=== PATIENT | female | born 1955 | race Caucasian/White ===

== ENCOUNTER 2021-02-19 06:21 | Inpatient (IN) ==
[2021-02-19] MEDS ORDERED: *HR* FentaNYL (PF) 100 MCG/2 ML VIAL ONE ×2 (07:04→08:13)
[2021-02-19] MEDS ORDERED: *HR* Midazolam HCl 2 MG/2 ML VIAL ONE (07:04)
[2021-02-19] MEDS ORDERED: Lidocaine -MPF 2% 5 ML VIAL ONE (07:04)
[2021-02-19] MEDS ORDERED: *HR* Rocuronium Bromide 50 MG/5 ML VIAL ONE (07:04)
[2021-02-19] MEDS ORDERED: Ondansetron 4 MG/2 ML VIAL ONE (07:04)
[2021-02-19] MEDS ORDERED: Lidocaine -MPF 4% 5 ML AMPUL ONE (07:04)
[2021-02-19] MEDS ORDERED: *HR* Succinylcholine 200 MG/10 ML VIAL IVP ONE (07:04)
[2021-02-19] MEDS ORDERED: *HR* Propofol 200 MG/20 ML VIAL IVP ONE (07:04)
[2021-02-19] MEDS ORDERED: CeFAZolin Syr 2,000MG/20 ML 2,000 MG/20 ML SYRINGE IVPB ONE (07:17)
[2021-02-19] MEDS ORDERED: *HR* HYDROmorphone 2 MG TABLET PO PRN (07:25)
[2021-02-19] MEDS ORDERED: Pregabalin 75 MG CAPSULE PO ONE (07:25)
[2021-02-19] MEDS ORDERED: *HR* Labetalol 20 MG/4 ML SYRINGE IVP PRN (07:25)
[2021-02-19] MEDS ORDERED: Acetaminophen IV 1,000 MG/100 ML BAG IVPB ONE (07:25)
[2021-02-19] MEDS ORDERED: Famotidine 20 MG/2 ML VIAL IVP ONE (07:25)
[2021-02-19] MEDS ORDERED: *HR* OxyCODONE Immed Rel 5 MG TABLET PO PRN (07:25)
[2021-02-19] MEDS ORDERED: Ringers Solution, Lactated 1,000 ML IVC SCH (07:30)
[2021-02-19] MEDS ORDERED: EPHEDrine 50 MG/ML VIAL ONE (08:10)
[2021-02-19] MEDS ORDERED: Sugammadex Sodium 200 MG/2 ML VIAL IV ONE (08:27)
[2021-02-19] MEDS ORDERED: *HR* Dextrose 50 % in Water (Syg) 50 ML SYRINGE IVP PRN ×2 (09:45→18:08)
[2021-02-19] MEDS ORDERED: Dextrose Gel 15 GM/37.5 ML TUBE PO PRN ×4 (09:45→18:08)
[2021-02-19] MEDS ORDERED: D5% in Water 1,000 ML IVC PRN ×2 (09:45→18:08)
[2021-02-19] MEDS: *HR* HYDROmorphone PF 0.5 MG/0.5 ML SYRINGE IVP PRN ×2 (10:04→10:15)
[2021-02-19] MEDS ORDERED: Insulin LISPRO 300 UNITS/3 ML VIAL SUBQ SCH ×3 (11:30→21:00)
[2021-02-19] MEDS ORDERED: Ondansetron 4 MG/2 ML VIAL IVP PRN (12:06)
[2021-02-19] MEDS ORDERED: *HR* HYDROcodone/Acet 5/325 mg TABLET PO PRN (12:06)
[2021-02-19] MEDS ORDERED: Naloxone 0.4 MG/ML INJ IVP PRN (12:06)
[2021-02-19] MEDS ORDERED: Silver Sulfadiazine 50 GM TUBE TP ONE (12:06)
[2021-02-19] MEDS: Ketorolac 30 MG/ML VIAL IVP SCH ×3 (13:07→23:27)
[2021-02-19] MEDS: *HR* Heparin 5,000 UNIT/ML VIAL SQ SCH ×2 (13:07→20:54)
[2021-02-19] MEDS: 0.9 % Sodium Chloride 1,000 ML IVC SCH (13:07)
[2021-02-19] MEDS: Ipratropium/Albuterol Neb 3 ML IH SCH ×4 (13:44→23:35)
[2021-02-19] MEDS: Gabapentin 300 MG CAPSULE PO SCH ×2 (14:31→20:34)
[2021-02-19] MEDS: *HR* Metformin 500 MG TABLET PO SCH (16:08)
[2021-02-19] MEDS ORDERED: Insulin LISPRO 300 UNITS/3 ML VIAL SUBQ ONE (18:45)
[2021-02-19] MEDS: Sennosides/Docusate Sodium TABLET PO SCH (20:34)
[2021-02-19] MEDS: Famotidine 20 MG TABLET PO SCH (20:34)
[2021-02-20] MEDS: 0.9 % Sodium Chloride 1,000 ML IVC SCH (02:57)
[2021-02-20] MEDS: Ipratropium/Albuterol Neb 3 ML IH SCH ×2 (04:26→07:32)
[2021-02-20 06:03] LABS: Hematocrit 31.1 % (35.3-44.9); Hemoglobin 10.4 g/dL (11.5-15.4); Mean Corpuscular HGB Conc 33.4 g/dL (31.6-35.5); Mean Corpuscular Hemoglobin 30.5 pg (28.0-33.3); Mean Corpuscular Volume 91.2 fL (83.0-100.0); Mean Platelet Volume 10.3 fL (9.4-12.4); Platelet Count 243 K/mcL (140-400); Red Blood Count 3.41 M/mcL (3.82-4.97); White Blood Count 9.3 K/mcL (4.3-11.1)
[2021-02-20] MEDS: Ketorolac 30 MG/ML VIAL IVP SCH (06:06)
[2021-02-20] MEDS: *HR* Heparin 5,000 UNIT/ML VIAL SQ SCH (06:07)
[2021-02-20 06:12] LABS: BUN/Creatinine Ratio 24 (6-26); Blood Urea Nitrogen 16 mg/dL (8-23); Calcium 8.7 mg/dL (8.6-10.3); Carbon Dioxide 24 mEq/L (23-29); Chloride 108 mEq/L (98-107); Glucose 241 mg/dL (70-105); Osmolality,Calculated 295 (280-300); Potassium 4.1 mEq/L (3.5-5.1); Sodium 138 mEq/L (136-145); eGFR For African Americans > 60 (> 60); eGFR For Non-African Americans > 60 (> 60)
[2021-02-20] MEDS ORDERED: Insulin LISPRO 300 UNITS/3 ML VIAL SUBQ SCH (07:30)
[2021-02-20 07:44] VITALS: BP 142/55; PULSE 71; TEMP 97.9; O2SAT 100
[2021-02-20] MEDS: Famotidine 20 MG TABLET PO SCH (08:00)
[2021-02-20] MEDS: *HR* Metformin 500 MG TABLET PO SCH (08:01)
[2021-02-20] MEDS: Gabapentin 300 MG CAPSULE PO SCH (08:01)
[2021-02-20] MEDS: Sennosides/Docusate Sodium TABLET PO SCH (08:01)
[2021-02-20] MEDS ORDERED: *HR* Glimepiride 4 MG TABLET PO SCH (09:00)
== END 2021-02-20 11:34 | disposition home or self-care (01) | DRG 165 ==
LOC: SAMDAY 06:21 → 2NNU 11:46
PROVIDERS: ADMIT Thoracic Surgery (Cardiothoracic Vascular Surgery); ATTEND Thoracic Surgery (Cardiothoracic Vascular Surgery)